=== PATIENT | female | born 1960 | race Caucasian/White ===

== ENCOUNTER 2021-02-16 14:20 | Outpatient (CLI) | payer OTHER ==
--- NOTE | 2021-02-24 09:22 | Mammography Report ---
BILATERAL DIGITAL SCREENING MAMMOGRAM 3D/2D WITH EXAGGERATED CC: 02/16/2021 CLINICAL: Routine screening. Routine screening. No prior exams were available for comparison. The tissue of both breasts is heterogeneously dense. T his may lower the sensitivity of mammography. Reporting delay due to awaiting outside images for comparison. There is an irregular equal density asymmetry with an indistinct margin in the left breast at 11 o'cl ock posterior depth. No other significant masses, calcifications, or other findings are seen in either breast. IMPRESSION: INCOMPLETE: NEEDS ADDITIONAL IMAGING EVALUATION The irregular equal density asymmetry in the left breast is indeterminate. Mediolateral and spot com pression views as well as additional views with possible ultrasound are recommended. This exam was interpreted at Station ID: [id number]. NOTE: For mammograms, a report in lay terms will be sent to the patient. Approximately 15% of breast malignancies will not be visualized mammographically. In the management of a palpable breast mass, a negative mammogram must not discourage biopsy of a clinically suspicious lesion. Electronically Signed By: Quentin Dial M.D. ddp/penrad:02/24/2021 08:29:58 ACR BI-RADS Category 0: Incomplete 3340F PARENCHYMAL PATTERN: (D) - The breast(s) demonstrate(s) heterogeneously dense fibroglandular wai hendricks. BI-RADS CATEGORY: (0) - 0 Mammo and [place] [id number] Immediate follow-up LATERALITY: (B)
== END 2021-02-16 14:21 | disposition home or self-care (01) ==
LOC: DI.S 14:20
PROVIDERS: ATTEND Internal Medicine
DX: Z12.31 Encounter for screening mammogram for malignant neoplasm of breast (principal); N64.89 Other specified disorders of breast

== ENCOUNTER 2021-03-05 07:32 | Outpatient (CLI) | payer OTHER ==
--- NOTE | 2021-03-06 13:25 | Mammography Report ---
UNILATERAL LEFT DIGITAL DIAGNOSTIC MAMMOGRAM 3D/2D: 03/05/2021 CLINICAL: Patient returns today to evaluate a focal asymmetry in the left breast. Comparison is made to exams dated: 02/16/2021 mammogram - [facility], 01/06/2018 mamm ogram, 02/06/2015 mammogram, and 01/18/2013 mammogram - [facility]. Th e tissue of left breast is heterogeneously dense. This may lower the sensitivity of mammography. There is an asymmetry in the left breast at 11 o'clock posterior depth. This is less prominent and d ecreased in size. No other significant masses or calcifications are seen in the breast. IMPRESSION: INCOMPLETE: NEEDS ADDITIONAL IMAGING EVALUATION The asymmetry in the left breast most likely is fibroglandular tissue and is indeterminate. An ultra sound is recommended. This exam was interpreted at Station ID: [id number]. NOTE: For mammograms, a report in lay terms will be sent to the patient. Approximately 15% of breast malignancies will not be visualized mammographically. In the management of a palpable breast mass, a negative mammogram must not discourage biopsy of a clinically suspicious lesion. Electronically Signed By: Aristides Diehl M.D., jr/long:03/05/2021 09:32:35 ACR BI-RADS Category 0: Incomplete 3340F PARENCHYMAL PATTERN: (D) - The breast(s) demonstrate(s) heterogeneously dense fibroglandular parleopoldoy ma. BI-RADS CATEGORY: (0) - 0 Ultrasound [id number] Immediate follow-up LATERALITY: (B)
--- NOTE | 2021-03-06 13:25 | Ultrasound Report ---
LIMITED ULTRASOUND OF LEFT BREAST: 03/05/2021 CLINICAL: Patient returns today to evaluate a focal asymmetry in the left breast. Comparison is made to exams dated: 03/05/2021 mammogram, 02/16/2021 mammogram - [facility], 01/06/2018 mammogram, 02/06/2015 mammogram, and 01/18/2013 mammogram - [facility]. Ultrasound of the left breast 11 o'clock region was performed. Wei scale images of the real-time e xamination were reviewed. The asymmetry in the left breast at 11 o'clock posterior depth questioned on the two most recent prio r mammographic studies has no sonographic correlate. No sonographic abnormality demonstrated. IMPRESSION: PROBABLY BENIGN No sonographic correlate for the asymmetry in the left breast, favored to represent benign fibrogland ular tissue. A follow-up mammogram in 6 months is recommended to demonstrate stability. This exam was interpreted at Station ID: [id number]. Electronically Signed By: Aristides Diehl M.D. jr/:03/05/2021 09:34:08 Ultrasound BI-RADS: 3 Probably benign BI-RADS CATEGORY: (3) - 3 Mammogram [id number] 6 month follow-up LATERALITY: (B)
== END 2021-03-05 07:33 | disposition home or self-care (01) ==
LOC: DI 07:32
PROVIDERS: ATTEND Internal Medicine
DX: R92.8 Other abnormal and inconclusive findings on diagnostic imaging of breast (principal)